=== PATIENT | male | born 1995 | race Two or more races ===

== ENCOUNTER 2025-07-03 23:49 | Emergency (ER) | payer SELFPAY ==
[2025-07-03 23:51] VITALS: BMI 28.5
[2025-07-03 23:57] VITALS: BP 108/75; PULSE 87; RESP 18; TEMP 37.1; O2SAT 96
--- NOTE | 2025-07-04 00:11 | XR_ITS ---
Examination: Abdomen AP single view Technique: AP portable supine abdomen, single view Exam date and time: 07/04/2025 at 1240 CLINICAL HISTORY: The patient swallowed the tip of the pen rule out foreign body FINDINGS: In the area of the mid stomach there is a 9 mm long metallic density consistent with the tip of the patent which the patient swallowed. Then proximal to this there is a translucent piece of something which is only visible by its radiopaque margins. This is also felt to represent another foreign body in the stomach The bowel gas pattern in the stomach small bowel and colon is entirely normal. The posterior lower lung zones are clear bony structures appear all right On the second film of the abdomen it is centered lower down illuminating the entire pelvis, but this film this is the uppermost portion of the abdomen the foreign bodies are not seen on this particular film. IMPRESSION: 1. 1 definite and a probable second foreign body are noted in the mid stomach
--- NOTE | 2025-07-04 00:12 | EDRME_ITS ---
Rapid Medical Screening Exam RME Arrival date/time: 07/03/25 23:49 This is a case of 30-year-old male who was brought by the [facility] due to swallowing a foreign body [facility] states that the patient swallowed a spraying and tip of the pen and was sent here for x-ray patient denies any suicidal or homicidal ideation denies any hallucination Chief Complaint: Dental/Oral/Throat Time Seen by Provider: 07/03/25 23:58 Vital signs: Vital Signs Temperature 98.8 F 07/03/25 23:57 Pulse Rate 87 07/03/25 23:57 Respiratory Rate 18 07/03/25 23:57 Blood Pressure 108/75 07/03/25 23:57 Pulse Oximetry (%) 96 07/03/25 23:57 Oxygen Delivery Method Room Air 07/03/25 23:57 Exam: Awake alert oriented not in distress nontoxic Clinical Impression: Swallowed foreign body
--- NOTE | 2025-07-04 02:25 | PD.EDDENTL ---
ED Dental RME/HPI General Chief complaint: Dental/Oral/Throat Stated complaint: POSSIBLY SWALLOWED METAL OBJECT, NEEDS XRAY Time Seen by Provider: 07/03/25 23:58 Arrival date/time: 07/03/25 23:49 RME / HPI RME / HPI Narrative: 07/03/25 23:49 This is a case of 30-year-old male who was brought by the [facility] due to swallowing a foreign body [facility] states that the patient swallowed a spraying and tip of the pen and was sent here for x-ray patient denies any suicidal or homicidal ideation denies any hallucination Dr. Trivedi?s Main ED Evaluation: 30yo male brought in by [facility] staff presents to the ED after swallowing a foreign body. Patient reportedly swallowed a metal part of a pen, so he was brought in for evaluation. Patient denies any abdominal pain, nausea, vomiting, or any other associated symptoms. NKA. Related Data Allergies Allergy/AdvReac Type Severity Reaction Status Date / Time No Known Allergies Allergy Verified 07/03/25 23:52 Review of Systems Review of Systems Systems Reviewed: All systems reviewed, normal except as documented ED Exam Narrative Physical exam: Generally patient is alert no obvious distress, heart regular rate and rhythm, lungs clear to auscultation equal bilaterally, abdomen is soft nontender nondistended Course Quality Measures none Orders Category Date Time Status KUB [XR abdomen 1V] Stat Exams 07/04/25 00:11 Taken Vital Signs Vital signs: Vital Signs Temperature 98.8 F 07/03/25 23:57 Pulse Rate 87 07/03/25 23:57 Respiratory Rate 18 07/03/25 23:57 Blood Pressure 108/75 07/03/25 23:57 Pulse Oximetry (%) 96 07/03/25 23:57 Oxygen Delivery Method Room Air 07/03/25 23:57 Dental / Oral MDM Narrative MDM Narrative:: Scribe Attestation: 07/04/25 Ana Ceja am scribing for and in the presence of Dr. Trivedi. KUB x-ray shows a metallic foreign body in the upper portion of the abdomen. This could be in the intestine or stomach. This metallic foreign body will be passed without difficulty. Patient data External records reviewed:: [facility] previous records (Per chart review, patient has no previous ED visits.) Clinical information provided by:: patient and law enforcement Social determinants that could affect healthcare access:: housing (resides at [facility]) Patient has the following chronic illnesses:: none How is presenting disease/condition affected by chronic disease/condition?: no chronic disease Evaluation data The following diagnostics were reviewed and interpreted by me:: radiology exam(s) Lab and/or radiology exams considered but not ordered:: none Interpretation Summary: See MDM Medications / Prescriptions Medications or Prescriptions considered but not ordered:: none Medication administrations:: none Consultations Consultation(s) initiated? (list below): No Diagnosis Dental Differential Diagnosis: other (See MDM) Most likely diagnosis given after review of the tests above:: see clinical impression below Admission Indicated Admission indicated?: not indicated Admission Request Was there a request for admission?: No Disposition Plan Disposition Plan: Discharge Discharge Attestation Discharge Attestation: The patient and all family members were given an opportunity to ask questions and understood the discharge instructions. Discharge instructions specifically effects, indications for sooner follow up or return to the emergency department, and the expected course of current diagnosis. Patient condition: Stable Discharge Plan Plan Patient Disposition: HOME (Self Care) Prescriptions/Referrals Referrals: No Primary/Family,Physician [Primary Care Provider] - In 1 week Problem List Clinical Impression: Foreign body ingestion Patient/Caregiver Discharge Instructions Education Materials: ED Swallowed Foreign Body (Adult) Additional Instructions: This metallic foreign body will pass without difficulty. Print Language: [place] Stand Alone Forms: Kelly Award Info., Patient Portal Info Letter
[2025-07-04 02:28] VITALS: BP 113/76; PULSE 74; RESP 17; TEMP 36.6; O2SAT 95
== END 2025-07-04 02:36 | disposition home or self-care (01) ==
PROVIDERS: Emergency Provider Emergency Medicine
DX: T18.9XXA Foreign body of alimentary tract, part unspecified, initial encounter (principal); W44.8XXA Other foreign body entering into or through a natural orifice, initial encounter
CPT/HCPCS: 74018; 99282